=== PATIENT | male | born 1980 | race African-American/Black ===

== ENCOUNTER → 2022-07-04 | Emergency (ER) | payer SELFPAY ==
[~2022-07-04] VITALS: Ht 190.5 cm; Wt 110.0 kg
[~2022-07-04] MED LIST: IPRATROPIUM/ALBUTEROL 0.5-3(2.5)MG/3ML NEB HHN ONE; PREDNISONE 20MG TABLET PO ONE
[2022-07-04 00:34] VITALS: BP 157/90
== END ==
LOC: ER 00:31
DX: Z53.21 Procedure and treatment not carried out due to patient leaving prior to being seen by health care provider (principal)